=== PATIENT | female | born 1945 | race Caucasian/White ===

== ENCOUNTER 2017-05-01 11:12 | Outpatient (CLI) | payer MEDICARE | END 2017-05-01 11:13 | disposition home or self-care (01) | LOC: BICMAMMO 11:12 | PROVIDERS: ATTEND Internal Medicine | DX: Z12.31 Encounter for screening mammogram for malignant neoplasm of breast (principal); R92.1 Mammographic calcification found on diagnostic imaging of breast; Z80.3 Family history of malignant neoplasm of breast | CPT/HCPCS: 77063; 77067 ==

== ENCOUNTER 2018-09-24 12:16 | Outpatient (CLI) | payer MEDICARE ==
--- NOTE | 2018-09-24 13:27 | MMO ---
Bilateral MAMMO Bilat Screen [facility]. CLINICAL HISTORY: Patient is 73 years old and is seen for screening. The patient has the following family history of breast cancer: mother, at age 59. The patient has no personal history of cancer. VIEWS: The views performed were: bilateral craniocaudal with tomosynthesis and bilateral mediolateral oblique with tomosynthesis. FILMS COMPARED: The present examination has been compared to prior imaging studies performed at [facility] on 05/30/2013, 11/06/2014 and 05/01/2017, and at [facility] on 10/20/2011. MAMMOGRAM FINDINGS: There are scattered fibroglandular densities. There are stable benign appearing calcifications seen in both breasts. There are no suspicious masses, suspicious calcifications, or new areas of architectural distortion. IMPRESSION: THERE IS NO MAMMOGRAPHIC EVIDENCE OF MALIGNANCY. A ROUTINE FOLLOW-UP MAMMOGRAM IN 1 YEAR IS RECOMMENDED. THE RESULTS OF THIS EXAM WERE SENT TO THE PATIENT. ACR BI-RADS Category 2 - Benign finding MAMMOGRAPHY NOTE: 1. A negative mammogram report should not delay a biopsy if a dominant of clinically suspicious mass is present. 2. Approximately 10% to 15% of breast cancers are not detected by mammography. 3. Adenosis and dense breasts may obscure an underlying neoplasm.
== END 2018-09-24 12:17 | disposition home or self-care (01) ==
LOC: BICMAMMO 12:16
PROVIDERS: ATTEND Internal Medicine
DX: Z12.31 Encounter for screening mammogram for malignant neoplasm of breast (principal); Z80.3 Family history of malignant neoplasm of breast
CPT/HCPCS: 77063; 77067

== ENCOUNTER 2023-07-02 09:24 | Outpatient (CLI) | payer MEDICARE | END 2023-07-02 09:25 | disposition home or self-care (01) | LOC: BICMAMMO 09:24 | PROVIDERS: ATTEND Internal Medicine | DX: N63.25 Unspecified lump in the left breast, overlapping quadrants (principal); N63.21 Unspecified lump in the left breast, upper outer quadrant; R59.9 Enlarged lymph nodes, unspecified | CPT/HCPCS: 76642; 77066; G0279 ==

== ENCOUNTER → 2023-08-11 | Outpatient (CLI) | payer MEDICARE | LOC: PET 11:00 | PROVIDERS: ATTEND Internal Medicine Hematology & Oncology | DX: Z51.11 Encounter for antineoplastic chemotherapy (principal); C50.112 Malignant neoplasm of central portion of left female breast; C77.3 Secondary and unspecified malignant neoplasm of axilla and upper limb lymph nodes | CPT/HCPCS: 78815; A9552 ==

== ENCOUNTER 2024-02-23 08:45 | Outpatient (CLI) | payer MEDICARE | END 2024-02-23 08:46 | LOC: PET 08:45 | PROVIDERS: ATTEND Internal Medicine Hematology & Oncology | DX: C50.112 Malignant neoplasm of central portion of left female breast (principal); C79.51 Secondary malignant neoplasm of bone | CPT/HCPCS: 78815; A9552 ==

== ENCOUNTER 2024-12-19 08:00 | Outpatient (CLI) | payer MEDICARE | END 2024-12-19 08:01 | disposition home or self-care (01) | LOC: PET 08:00 | PROVIDERS: ATTEND Internal Medicine Hematology & Oncology | DX: C50.112 Malignant neoplasm of central portion of left female breast (principal); C79.51 Secondary malignant neoplasm of bone; D70.8 Other neutropenia | CPT/HCPCS: 78815; A9552 ==

== ENCOUNTER 2025-02-28 11:45 | Outpatient (CLI) | payer MEDICARE | END 2025-02-28 11:46 | disposition home or self-care (01) | LOC: PET 11:45 | PROVIDERS: ATTEND Internal Medicine Hematology & Oncology | DX: C50.112 Malignant neoplasm of central portion of left female breast (principal); C79.51 Secondary malignant neoplasm of bone; D70.8 Other neutropenia | CPT/HCPCS: 78815; A9552 ==